=== PATIENT | male | born 1985 | race Caucasian/White ===

== ENCOUNTER 2017-10-02 19:14 | Emergency (ER) | payer MEDICAID ==
[~2017-10-02] VITALS: Ht 180.3 cm; Wt 97.0 kg
[~2017-10-02 19:14] MED LIST: INDO25CA PO; OXYC-134 PO
[2017-10-02] MEDS ORDERED: BUPIVAcaine 0.5% inj/PF 30 ml vial IJ ONE (19:40)
[2017-10-02] MEDS ORDERED: TETanus/Pertussis (Acell)/Diphther VAC/PF (Tdap-Adult) 0.5ml syringe IMVAC ONE (20:00)
[2017-10-02 20:51] VITALS: BP 146/98
== END 2017-10-02 20:56 | disposition home or self-care (01) ==
LOC: ER 19:15
DX: S61.412A Laceration without foreign body of left hand, initial encounter (principal); I10 Essential (primary) hypertension; W22.8XXA Striking against or struck by other objects, initial encounter; Y93.89 Activity, other specified; Y92.89 Other specified places as the place of occurrence of the external cause; Y99.8 Other external cause status
CPT/HCPCS: 12002; 90471; 90715; 99283; A6255; A6449; J3490

== ENCOUNTER 2021-07-20 20:02 | Emergency (ER) | payer MEDICAID ==
[~2021-07-20] VITALS: Ht 180.3 cm; Wt 88.6 kg
[~2021-07-20 20:02] MED LIST changes: +INDO-12 PO; -INDO25CA PO; +NEOM10SO7 OT
[2021-07-20] MEDS ORDERED: HYDROcodone/acetaminophen 10/325mg tab PO ONE (22:45)
[2021-07-20] MEDS ORDERED: ketorolac trometh. 30mg/ml inj. IM ONE (22:45)
[2021-07-20 23:23] VITALS: BP 127/97
[2021-07-20] MEDS ORDERED: HYDR-3972 PO (23:29)
== END 2021-07-21 00:38 | disposition home or self-care (01) ==
LOC: ER 20:04
DX: S22.31XA Fracture of one rib, right side, initial encounter for closed fracture (principal); I10 Essential (primary) hypertension; X58.XXXA Exposure to other specified factors, initial encounter; Y93.89 Activity, other specified; Y92.89 Other specified places as the place of occurrence of the external cause; Y99.8 Other external cause status
CPT/HCPCS: 71045; 96372; 99284; J1885; 99283

== ENCOUNTER 2022-05-11 15:41 | Emergency (ER) | payer MEDICAID ==
[~2022-05-11] VITALS: Ht 180.3 cm; Wt 84.1 kg
[2022-05-11 16:44] LABS: BASOPHILS # (AUTO) 0.1 X10'3 (0-0.2); BASOPHILS % (AUTO) 0.7 % (0-1); EOSINOPHILS # (AUTO) 0.1 X10'3 (0-0.9); EOSINOPHILS % (AUTO) 1.2 % (0-6); HEMOGLOBIN 15.3 g/dl (14.0-17.9); LYMPHOCYTES # (AUTO) 2.3 X10'3 (1.1-4.8); LYMPHOCYTES % (AUTO) 30.5 % (21-51); MEAN CORPUSCULAR HGB CONC 34.7 g/dL (33.0-36.5); MEAN PLATELET VOLUME 7.9 FL (7.4-10.4); MONOCYTES # (AUTO) 0.6 X10'3 (0-0.9); MONOCYTES % (AUTO) 7.6 % (2-12); NEUTROPHILS # (AUTO) 4.6 X10'3 (1.8-7.7); PLATELET COUNT 282 X10'3 (140-440); RED BLOOD COUNT 4.49 X10'6 (4.70-6.10); RED CELL DISTRIBUTION WIDTH 13.1 % (11.5-14.5); WHITE BLOOD COUNT 7.6 X10'3 (4.5-11.0)
[2022-05-11 17:01] LABS: ALANINE AMINOTRANSFERASE 61 U/L (12-78); ALBUMIN/GLOBULIN RATIO 1.1 (1.1-1.5); ALKALINE PHOSPHATASE 52 IU/L (46-116); ANION GAP 9 (8-16); ASPARTATE AMINO TRANSFERASE 42 U/L (10-37); BILIRUBIN,TOTAL 0.6 MG/DL (0.1-1.0); BLOOD UREA NITROGEN 4 MG/DL (7-18); BUN/CREATININE RATIO 5.3 (5.4-32.0); CALCIUM 8.8 MG/DL (8.5-10.1); CHLORIDE 104 MMOL/L (99-107); CREATININE 0.76 MG/DL (0.60-1.10); GLUCOSE 105 MG/DL (70-104); LIPASE 57 U/L (73-393); POTASSIUM 3.4 MMOL/L (3.5-5.1); SODIUM 138 MMOL/L (135-145); TOTAL CARBON DIOXIDE 24.8 MMOL/L (24-32); TOTAL PROTEIN 7.6 G/DL (6.4-8.2); eGFR > 90 ML/MIN
[2022-05-11 19:15] LABS: CLARITY,URINE CLEAR (Clear); COLOR,URINE YELLOW (Yellow); GLUCOSE, URINE NEGATIVE (Neg); KETONES,URINE NEGATIVE (Neg); LEUKOCYTE ESTERASE ,URINE NEGATIVE (Neg); NITRITES, URINE NEGATIVE (Neg); OCCULT BLOOD,URINE NEGATIVE (Neg); PROTEIN,URINE NEGATIVE (Neg); UROBILINOGEN,URINE 0.2 E.U/dL (0.2-1.0)
[2022-05-11 19:24] LABS: UA COLLECTION TYPE CLN CATCH MIDSTREAM
[2022-05-11] MEDS ORDERED: ondansetron 4mg rapidly disintigrating tab PO ONE (20:35)
[2022-05-11] MEDS ORDERED: ibuprofen 200mg tablet PO ONE (20:35)
[2022-05-11 20:42] VITALS: BP 130/88
--- NOTE | 2022-05-11 21:20 | NUR ---
integration technician at the bedside.
== END 2022-05-11 21:44 | disposition home or self-care (01) ==
LOC: ER 15:42
DX: R10.11 Right upper quadrant pain (principal); R11.0 Nausea; I10 Essential (primary) hypertension; Z79.899 Other long term (current) drug therapy; Z90.49 Acquired absence of other specified parts of digestive tract; Z98.890 Other specified postprocedural states
CPT/HCPCS: 36415; 76700; 80053; 81003; 83690; 85025; 99284

== ENCOUNTER 2024-11-28 16:04 | Emergency (ER) | payer BC, MEDICAID ==
[~2024-11-28] VITALS: Ht 180.3 cm; Wt 86.4 kg
[2024-11-28] MEDS ORDERED: HYDR-3965 PO ×3 (17:44→20:34)
[2024-11-28] MEDS: ketorolac trometh 15mg/ml vial 15 MG/ML ML IM ONE (17:47)
[2024-11-28] MEDS: ketorolac trometh 30MG/ML vial 30 MG/ML VIAL IM ONE (17:55)
[2024-11-28 18:16] VITALS: BP 130/76; PULSE 94; RESP 18; TEMP 98.8; O2SAT 99
== END 2024-11-28 20:00 | disposition home or self-care (01) ==
LOC: ER 16:05
DX: S22.31XA Fracture of one rib, right side, initial encounter for closed fracture (principal); I10 Essential (primary) hypertension; M19.90 Unspecified osteoarthritis, unspecified site; Z90.89 Acquired absence of other organs; Z98.890 Other specified postprocedural states; W11.XXXA Fall on and from ladder, initial encounter; Y93.89 Activity, other specified; Y92.89 Other specified places as the place of occurrence of the external cause; Y99.8 Other external cause status
CPT/HCPCS: 71101; 72040; 73560; 96372; 99284; J1885